=== PATIENT | male | born 1990 | race Caucasian/White ===

== ENCOUNTER 2020-10-24 06:14 | Day surgery (SDC) | payer OTHER, SELFPAY ==
[~2020-10-24] VITALS: Ht 180.3 cm; Wt 204.1 kg
[~2020-10-24 06:14] MED LIST: ALBU0.0939; CITA10TA98; FLUT1DSK2
[2020-10-24] MEDS ORDERED: MIDAZOLAM 2 MG/2 ML VIAL ONE (08:43)
[2020-10-24] MEDS ORDERED: fentaNYL citrate 0.05 MG/ML VIAL ONE (08:43)
[2020-10-24] MEDS ORDERED: LIDOCAINE VISCOUS 2% 20 ML UDC ONE (08:51)
[2020-10-24] MEDS ORDERED: MIDAZOLAM 2 MG/2 ML VIAL IVP ONE ×2 (09:15→14:00)
[2020-10-24] MEDS ORDERED: LIDOCAINE VISCOUS 2% 20 ML UDC PO SCH (09:20)
[2020-10-24] MEDS ORDERED: LIDOCAINE VISCOUS 2% 20 ML UDC PO ONE (14:00)
== END 2020-10-24 13:35 | disposition home or self-care (01) ==
LOC: MDS 06:14 → MMU 06:15 → MDS 13:35
PROVIDERS: ATTEND Internal Medicine Gastroenterology
DX: K21.9 Gastro-esophageal reflux disease without esophagitis (principal); E66.01 Morbid (severe) obesity due to excess calories; Z88.1 Allergy status to other antibiotic agents; Z79.84 Long term (current) use of oral hypoglycemic drugs; Z79.899 Other long term (current) drug therapy; Z68.44 Body mass index [BMI] 60.0-69.9, adult; Z20.828 Contact with and (suspected) exposure to other viral communicable diseases
CPT/HCPCS: 36415; 43239; 86677; J2250; U0003; J3010